=== PATIENT | male | born 1985 | race Caucasian/White ===

== ENCOUNTER 2018-11-08 08:34 | Emergency (ER) | payer MEDICAID, OTHER ==
[~2018-11-08] VITALS: Ht 177.8 cm; Wt 86.2 kg
--- NOTE | 2018-11-08 08:49 | NUR ---
DR LEO AT THE BEDSIDE FOR MSE.
[2018-11-08 08:53] VITALS: BP 147/90
--- NOTE | 2018-11-08 08:58 | NUR ---
Patient discharged to home in stable conditon. Written and verbal after care instructions given. Patient verbalizes understanding of instructions.
== END 2018-11-08 08:59 | disposition home or self-care (01) ==
LOC: ER 08:34
DX: A60.00 Herpesviral infection of urogenital system, unspecified (principal)
CPT/HCPCS: A4663

== ENCOUNTER 2018-11-25 11:45 | Emergency (ER) | payer MEDICAID, OTHER ==
[~2018-11-25] VITALS: Ht 177.8 cm; Wt 86.2 kg
--- NOTE | 2018-11-25 12:00 | NUR ---
MARK DUGGAN AT BEDSIDE FOR MSE.
--- NOTE | 2018-11-25 12:01 | NUR ---
Note jeanne in EDM - 11/25/18 at 1201 by ALISE Patient discharged to home in stable conditon. Written and verbal after care instructions given. Patient verbalizes understanding of instructions. ALL BELONGINGS W/ PT. PT SELF-AMBULATED W/O DIFFICULTY.
[2018-11-25] MEDS ORDERED: LIDOCAINE HCL 1% 20 ML VIAL ONE (12:13)
[2018-11-25] MEDS ORDERED: CEFTRIAXONE 500 MG VIAL ONE (12:13)
[2018-11-25] MEDS ORDERED: AZITHROMYCIN 250 MG TABLET ONE (12:13)
[2018-11-25] MEDS ORDERED: CEFTRIAXONE 1 G VIAL IM ONE (12:15)
[2018-11-25] MEDS ORDERED: AZITHROMYCIN 250 MG TABLET PO ONE (12:15)
[2018-11-25 12:21] LABS: *BILIRUBIN,URIN NEGATIVE (NEGATIVE); *BLOOD, URINE NEGATIVE (NEGATIVE); *CLARITY,URINE CLEAR (CLEAR); *COLOR,URINE YELLOW (YELLOW); *KETONES,URINE NEGATIVE (NEGATIVE); *UROBILINOGEN,URINE 0.2 E.U./dl (NORMAL); LEUKOCYTE ESTERASE ,URINE NEGATIVE (NEGATIVE); NITRITE, URINE NEGATIVE (NEGATIVE); PH,URINE 5.5 (5.0-8.0); UGLUCOSE NEGATIVE (NEGATIVE)
--- NOTE | 2018-11-25 12:31 | NUR ---
Patient discharged to home in stable conditon. Written and verbal after care instructions given. Patient verbalizes understanding of instructions. ALL BELONGINGS W/ PT. PT SELF-AMBULATED W/O DIFFICULTY.
[2018-11-25 12:32] VITALS: BP 139/66
== END 2018-11-25 12:32 | disposition home or self-care (01) ==
LOC: ER 11:46
DX: K21.9 Gastro-esophageal reflux disease without esophagitis (principal); N34.2 Other urethritis
CPT/HCPCS: 81001; 96372; 99283; J0696; J3490; A4663; Q0144

== ENCOUNTER 2018-12-15 04:24 | Emergency (ER) | payer BC, OTHER ==
[~2018-12-15] VITALS: Ht 177.8 cm; Wt 86.2 kg
--- NOTE | 2018-12-15 04:43 | NUR ---
Patient ambulated with stable gait. Speech is clear, speaks in complete sentences. No neuro deficits. Patient came for c/o genital issues. Respiratory even and unlabored, no cough no sob. No cardiovascular distress noted. Denies any n/v/d.
--- NOTE | 2018-12-15 04:55 | NUR ---
Patient discharged to home in stable conditon. Written and verbal after care instructions given. Patient verbalizes understanding of instructions. Patient ambulated with stable gait.
[2018-12-15 05:09] VITALS: BP 130/72
== END 2018-12-15 05:09 | disposition home or self-care (01) ==
LOC: ER 04:27
DX: A60.00 Herpesviral infection of urogenital system, unspecified (principal)
CPT/HCPCS: A4663